=== PATIENT | female | born 1990 | race Two or more races ===

== ENCOUNTER 2018-02-18 00:21 | Emergency (ER) | payer SELFPAY ==
[~2018-02-18] VITALS: Ht 162.6 cm; Wt 90.7 kg
[2018-02-18 00:54] VITALS: Ht 162.6 cm; Wt 90.7 kg
[2018-02-18 01:56] VITALS: BP 112/68
== END 2018-02-18 01:56 | disposition home or self-care (01) ==
LOC: ED 00:21
DX: Z11.3 Encounter for screening for infections with a predominantly sexual mode of transmission (principal)
CPT/HCPCS: 87491; 87591